=== PATIENT | male | born 1990 | race Caucasian/White ===

== ENCOUNTER → 2021-12-08 10:15 | Outpatient (BNVA) | payer OTHER, SELFPAY | PROVIDERS: PCP Nurse Practitioner Family; Visit Provider Surgery | DX: K43.9 Ventral hernia without obstruction or gangrene (principal) | CPT/HCPCS: 99202 ==

== ENCOUNTER 2022-01-01 05:54 | Day surgery (SDC) | payer OTHER, SELFPAY ==
[2021-12-26 10:27] VITALS: BMI 25.7
[2022-01-01] VITALS (7 sets, daily range): BP systolic 120–130; BP diastolic 70–79; PULSE 67–77; RESP 15–18; TEMP 36.6–36.8; O2SAT 97–100; BMI 25.7
[2022-01-01] MEDS: Lactated Ringers 1,000 ML 100 ML IVCONT (06:29)
--- NOTE | 2022-01-01 07:11 | P.CONAN_ITS ---
[facility] Active Problems Active Problems: All Active Problems (Updated 12/26/21 @ 10:27 by Pascale Reyes RN) Ventral hernia (Acute) Past Medical History Medical History Depression Hx of headache PTSD (post-traumatic stress disorder) Ventral hernia Family History Family History Father Carcinoma of liver and intrahepatic bile ducts Maternal Grandmother Breast cancer Surgical History Surgical History No pertinent past surgical history History of Problems with Anesthesia: No Social History Social History Are you a primary healthcare interpreter to a significant other at home: No Do you presently have visiting nurse or other home services: No Alcohol intake: never Patient Tobacco Use Status: Never used Tobacco Second Hand Smoke Exposure: No Use of substances other than those prescribed or required for medical reasons: No Have you been hit, kicked, punched, or otherwise hurt by someone within the past year? If so, by whom?: No Are you DNR?: No Advance Directives: No Advance Directives Information Provided: No Advance Directives on File: No Recently lost weight without trying: No Eating poorly because of decreased appetite: No Nutrition Risks: No Nutritional Risk Poor oral hygiene: No Meds Allergies Allergy/AdvReac Type Severity Reaction Status Date / Time No Known Allergies Allergy Verified 01/01/22 06:13 Active Medications: Current Medications Lactated Ringer's (Lr) 1,000 mls @ 100 mls/hr IVCONT .Q10H NOÉ Last Admin: 01/01/22 06:29 Dose: 100 mls/hr Documented by: Home Medications Medication Instructions Recorded Confirmed Last Taken Type fluoxetine 10 mg capsule (Prozac) 10 mg PO DAILY 12/08/21 01/01/22 01/01/22 History 10 mg lisdexamfetamine 40 mg capsule 40 mg PO DAILY 12/08/21 12/25/21 Unknown History prazosin 2 mg capsule 2 mg PO BEDTIME 12/08/21 12/25/21 Unknown History prazosin 5 mg capsule 5 mg PO BEDTIME 12/08/21 12/25/21 Unknown History risperidone 1 mg tablet 1 mg PO DAILY tab 12/08/21 12/25/21 Unknown History Exam Exam Date and Time: January 01, 2022 0711 Height,Weight and Vital Signs: Height 6 ft Weight 86.183 kg Last Vital Signs Temp 98.1 F 01/01/22 06:13 Pulse 68 01/01/22 06:13 Resp 15 01/01/22 06:13 BP 120/70 01/01/22 06:13 Pulse Ox 97 01/01/22 06:13 Airway Mallampati Class: III TM Dist: >3cm Neck ROM: Full Loose/Missing/Broken Teeth: No Heart: RRR Lungs: CTA Assessment and Plan Assessment Anesthesia Assessment: Anesthesia Plan Discussed and Chart Reviewed Final Anesthetic Review History of Problems with Anesthesia: No NPO: Yes ASA Class: II Final Preanesthetic Review: Meds/Allgs Chart Reviewed, Consent Obtained/Reviewed and Anes Risks/Benef Reviewed Patient Risk: Low Procedure Risk: Low Anesthetic Plan Anesthetic Plan: GA Disposition: Standard PACU
--- NOTE | 2022-01-01 08:24 | P.OP_ITS ---
Operative Note Operative Note Date of Service: 01/01/22 Narrative: Preoperative diagnosis: Ventral hernia Postoperative diagnosis: Same Procedure: Repair of ventral hernia with mesh Surgeon: Chandrakant Hughes MD [employer] Machine Operator: Savannah Kamara PA-C Anesthesia: General LMA Indications for procedure: 31-year-old male patient presenting with a palpable mass in periumbilical region which increases in size with lifting and straining. Patient reports pain when the hernia is protruding. He is able to reduce the hernia with light pressure. Operative findings: Patient found to have a small ventral hernia just above the umbilicus measuring approximately 1.5 cm in diameter. Specimen: None Estimated blood loss: 5 mL Complications: None Procedure details: Patient was brought to the OR and placed in a supine position. After administering general anesthesia the patient's abdomen was prepped with ChloraPrep and draped in a sterile fashion. A surgical time-out was called and the consent confirmed. Patient received preoperative antibiotics and Venodyne boots were in place. Local anesthesia consisting of 0.5% Sensorcaine was infiltrated in the midline just above the umbilicus. Incision was then made over the hernia and carried down through subcutaneous tissue. The hernia sac was identified. The sac was dissected down to the fascial defect. The umbilical skin was then lifted off the fascia using electrocautery. The hernia sac was then dissected circu mferentially and the contents reduced. No bowel was noted within the hernia. A preperitoneal space was then created using electrocautery. A small Ventralex mesh measuring 4.6 cm in diameter was then obtained. This was placed in the preperitoneal space and secured in 4 quadrants using a 1 Tycron suture. Fascia was then closed over the mesh using [id number] 1 Tycron sutures. Wounds were then irrigated with saline solution and suctioned dry. Umbilical skin was then reattached to the fascia using a 3-0 Polysorb suture. Dermis was closed using interrupted 3-0 Polysorb sutures. Skin was then closed using a running subcuticular 4-0 Polysorb suture. Sterile dressings consisting of Steri-Strips, 2 x 2 gauze, and Tegaderm were then applied. The patient tolerated the procedure well. He was transferred to PACU in stable condition.
--- NOTE | 2022-01-01 08:28 | MHC.SHP ---
Pre-Procedural Eval Section A Date of Service: 01/01/22 The patient is an INPATIENT: No Changes since office visit: Yes Patient answered all questions; No Cold of Flu in the past 2 weeks, No New Medical Problems and No Changes in Medication The History & Physical has been completed within 30 days and I have reviewed it.: Yes Section B Chief Complaint: Ventral Hernia Allergies: Allergies Allergy/AdvReac Type Severity Reaction Status Date / Time No Known Allergies Allergy Verified 01/01/22 06:13 Plan Diagnosis/Plan: Unchanged I have reviewed the history and physical and performed a pertinent physical examination on my patient. No changes have occurred unless specified.
[2022-01-01] MEDS: Acetaminophen 325 MG TABLET 650 MG PO (08:52)
[2022-01-01] MEDS: oxyCODONE HCl Immed Release 5 MG TABLET PO (08:53)
[2022-01-01] MEDS: Ketorolac Tromethamine 15 MG/ML VIAL IVPUSH (08:58)
== END 2022-01-01 10:10 | disposition home or self-care (01) ==
PROVIDERS: PCP Nurse Practitioner Family; Visit Provider Surgery
PROC: (CPT 49560; principal; 2022-01-01 07:30)
DX: K43.9 Ventral hernia without obstruction or gangrene (principal); Z87.19 Personal history of other diseases of the digestive system; Z79.899 Other long term (current) drug therapy
CPT/HCPCS: 49560; 49568; C1781; J0690; J1100; J1885; J2250; J2405; J3010

== ENCOUNTER → 2022-01-09 10:36 | Outpatient (BNVA) | payer OTHER, SELFPAY | PROVIDERS: PCP Nurse Practitioner Family; Visit Provider Surgery | DX: Z48.815 Encounter for surgical aftercare following surgery on the digestive system (principal); Z87.19 Personal history of other diseases of the digestive system; Z98.890 Other specified postprocedural states | CPT/HCPCS: 99212 ==

== ENCOUNTER → 2022-02-08 10:21 | Outpatient (BNVA) | payer OTHER, SELFPAY | PROVIDERS: PCP Nurse Practitioner Family; Visit Provider Surgery | DX: Z48.815 Encounter for surgical aftercare following surgery on the digestive system (principal); Z87.19 Personal history of other diseases of the digestive system; Z98.890 Other specified postprocedural states | CPT/HCPCS: 99212 ==

== ENCOUNTER → 2022-04-03 13:49 | Outpatient (BNVA) | payer OTHER, SELFPAY | PROVIDERS: PCP Nurse Practitioner Family; Visit Provider Surgery | DX: Z13.89 Encounter for screening for other disorder (principal) ==

== ENCOUNTER 2023-08-02 11:24 | Emergency (ER) | payer OTHER, SELFPAY ==
[2023-08-02 11:28] VITALS: BP 141/91; PULSE 73; RESP 16; TEMP 36.6; O2SAT 99; BMI 25.1
--- NOTE | 2023-08-02 11:29 | ED.GENADULT ---
HPI - General Adult General Chief complaint: General Medical Stated complaint: feels like passing out drinking lots of water Time Seen by Provider: 08/02/23 14:07 Source: patient, family and old records reviewed Mode of arrival: ambulatory Limitations: no limitations History of Present Illness HPI narrative: 33 yo male with PMH of PTSD, depression, s/p ventral hernia repair took himself off of his risperdal 1mg about 2 weeks ago as he did not like the side effects. He now feels since Saturday just off that when he stands he feels like he is going to pass out and he is urinating a lot. He had R labrum surgery 5 weeks ago. No fevers, n/v/d. He just doesn't feel great. He did not like the side effects of the medication so he stopped it. MD complaint: fatigue Onset (ago): day(s) (5) Radiation: non-radiation Severity: moderate Quality: aching Relieving factors: none Exacerbating factors: other (worse with standing up) Associated symptoms: malaise and weakness Treatments prior to arrival: none Related Data Home Medications Medication Instructions Recorded Confirmed fluoxetine 10 mg capsule (Prozac) 10 mg PO DAILY 12/08/21 02/08/22 lisdexamfetamine 40 mg capsule 40 mg PO DAILY 12/08/21 12/25/21 prazosin 2 mg capsule 2 mg PO BEDTIME 12/08/21 12/25/21 prazosin 5 mg capsule 5 mg PO BEDTIME 12/08/21 12/25/21 risperidone 1 mg tablet 1 mg PO DAILY 12/08/21 12/25/21 Previous Rx's Medication Instructions Recorded oxycodone-acetaminophen 5 mg-325 1 tab PO Q6H PRN pain (scale score 01/01/22 mg tablet (Endocet) 7-10) #15 tabs Allergies Allergy/AdvReac Type Severity Reaction Status Date / Time No Known Allergies Allergy Verified 04/03/22 13:59 Review of Systems Review of Systems: Constitutional : No Fever, No Chills, No Fatigue, pos malaise Cardiovascular : No Chest Pain, No SOB, No Dyspnea on Exertion Respiratory : No Cough, No Sputum Gastrointestinal : No Nausea, No Vomiting, No Diarrhea, No abdominal Pain Genitourinary : No Dysuria, No Urinary Frequency, No Hematuria, Musculoskeletal : No joint pain, No Myalgias, No Joint Swelling Skin : No Skin Lesions, No rash Neuro : No Weakness, No Numbness, pos Dizziness, no Headache Psych : No Anxiety/Panic, No Depression Heme/Lymph: No Bruising, No Bleeding,No Lymphadenopathy All other systems reviewed and are negative [facility] Past Medical History Attestation statement: The following information was validated with the patient. Source: old records reviewed Medical History (Updated 08/02/23 @ 15:17 by Eulalia Ayala DO) Weakness Hx of headache Depression PTSD (post-traumatic stress disorder) Ventral hernia (01/01/22) Surgical History History of ventral hernia repair (01/01/22) No pertinent past surgical history Family History Family History Father Carcinoma of liver and intrahepatic bile ducts Maternal Grandmother Breast cancer Social History Social History Are you a primary critical care unit manager to a significant other at home: No Do you presently have visiting nurse or other home services: No Alcohol intake: never Patient Tobacco Use Status: Never used Tobacco Smoked in Last 30 Days: No Second Hand Smoke Exposure: No Use of substances other than those prescribed or required for medical reasons: No Advance Directives: No Advance Directives Information Provided: Yes Physical Exam ED Vital Signs: Vital Signs - 24 hr 08/02/23 11:28 08/02/23 14:35 08/02/23 14:44 Temperature 98 F 98.2 F Pulse Rate 73 63 57 Respiratory Rate 16 16 Blood Pressure 141/91 H 124/77 126/79 Pulse Oximetry 99 98 Oxygen Delivery Method Room Air Room Air 08/02/23 14:45 08/02/23 14:46 Temperature Pulse Rate 62 69 Respiratory Rate Blood Pressure 139/86 123/84 Pulse Oximetry Oxygen Delivery Method BMI result Body Mass Index 25.1 Appearance: Alert. Oriented X3. No acute distress. Eyes: Pupils equal, round and reactive to light. ENT: Pharynx normal. Neck: Normal inspection. Neck supple. CVS: Normal heart rate and rhythm. Pulses normal. Respiratory: No respiratory distress. Breath sounds normal. Abdomen: Soft and non-tender. Skin: Skin warm and dry. Normal skin color. Normal skin turgor. Extremities: No lower extremity edema. R arm in splint bruising to R upper arm - distal NV intact Neuro: Oriented X 3. No motor deficit. No sensory deficit. Course Course Course Narrative: This is an RME: Additional HPI, ROS, PE not included below will be deferred to primary provider. Patient is a 33-year-old male who presents to the emergency department for evaluation of multiple symptoms. He states that he was experiencing the symptoms over the past 2 years which he attributed to use of Risperidone, spoke with his doctor who advised him that he needed to drink water. He endorses that he stopped risperidone 2 weeks ago, noticed complete improvement for about 1 week, but for the past 4 days symptoms have returned and are worse. Constant lightheadedness, feeling a though he is going to pass out, has some improvement after sitting down for a while. Endorses SOB on exertion, urinary frequency with large amounts voided, headache. Denies fevers, chills, chest pain, numbness or tingling of extremities. Plan: labs, EKG, U/A, viral testing Reevaluation(s) Reevaluation #1: negative workup at this time. UA and labs, ortho VS negative stable for DC Reevaluation #2: they have a blood sugar machine at home Medical Decision Making Medical Decision Making [facility] Narrative: 33 yo male with PMH of PTSD, depression, s/p ventral hernia repair took himself off of his risperdal 1mg about 2 weeks ago here with feelings of getting clammy dizzy when standing like his sugar is low and he is urinating a lot. He was worried his blood sugar was off. He is eating. He has no fevers, chest pain, shortness of breath. His symptoms are worse with standing. Could be orthostasis, anemia, dehydration. Differential Diagnosis Differential Diagnoses: The differential diagnosis associated with the presentation includes anemia, dehydration, orthostatics, no CP - stable VS doubt VTE, 5 weeks out of surgery 1+ month out no headaches no focal deficits doubt intracranial mass Admission/Observation Consideration of admission/observation: Escalation of care including admission/observation considered EKG and labs, ortho VS negative Lab Data [facility] Lab Attestation statement: I reviewed the patient's lab results. 08/02/23 11:44 08/02/23 11:44 Labs: Lab Results 08/02/23 08/02/23 Range/Units 11:44 14:47 WBC 4.3 L (4.8-10.8) X10*3/uL RBC 4.97 (4.60-5.80) X10*6/uL Hgb 14.8 (14.0-18.0) g/dl Hct 43.6 (42.0-52.0) % MCV 87.7 (80.0-98.0) fL MCH 29.8 (27.0-33.0) pg MCHC 33.9 (31.0-36.0) g/dl RDW 11.1 (11.0-16.0) % Plt Count 157 L (160-400) X10*3/uL MPV 9.1 L (9.4-12.4) fL Immature Gran % (Auto) 0.2 (0.0-0.4) % Neut % (Auto) 66.3 (45-73) % Lymph % (Auto) 24.0 (20-40) % [place] % (Auto) 8.1 (2-11) % Eos % (Auto) 0.9 (0-4) % Baso % (Auto) 0.5 (0-2) % Lymph # (Auto) 1.0 L (1.2-4.9) X10*3/uL [place] # (Auto) 0.4 (0.1-1.2) X10*3/uL Eos # (Auto) 0.0 (0.0-0.4) X10*3/uL Baso # (Auto) 0.0 (0.0-0.2) X10*3/uL Abs Immat Gran (auto) 0.01 (0.00-0.03) X10*3/uL Absolute Neuts (auto) 2.9 (2.0-8.3) x10*3/uL Absolute Nucleated RBC 0.000 (0.0-0.012) X10*3/uL Nucleated RBC % (auto) 0.0 (0.0-0.2) /100WBC PT 11.4 (11.1-13.3) SEC INR 0.9 (0.9-1.1) Sodium 141 (135-145) mmol/L Potassium 4.2 (3.3-5.1) mmol/L Chloride 106 (96-108) mmol/L Carbon Dioxide 26 (22-29) mmol/L Anion Gap 13 (12-20) BUN 15 (9-16) mg/dL Creatinine 1.08 (0.5-1.4) mg/dL Estim Creat Clear Calc 106.7 Estimated GFR > 60 Random Glucose 106 (60-115) mg/dL Calcium 9.3 (8.4-10.2) mg/dL Magnesium 2.0 (1.6-2.6) mg/dL Total Bilirubin 0.6 (0.0-1.0) mg/dL AST 17 (5-37) U/L ALT 16 (0-40) U/L Alkaline Phosphatase 66 (39-117) U/L Total Protein 7.3 (6.5-8.0) g/dL Albumin 4.8 (3.5-5.0) g/dL Lipase 53 (8-78) U/L TSH 0.89 (0.32-4.0) uIU/mL Urine Color Yellow Urine Appearance Clear Urine pH 6.5 (5.0-9.0) Ur Specific [place] <= 1.005 (1.005-1.025) Urine Protein Negative (Neg-Trace) mg/dL Urine Glucose (UA) Negative (Negative) mg/dL Urine Ketones Negative (Negative) mg/dL Urine Blood Negative (Negative) Urine Nitrite Negative (Negative) Ur Leukocyte Esterase Negative (Negative) COVID-19 ([place]) Negative (Negative) COVID-19 Clin Com See Note Independent Interpretation I performed an independent interpretation of an: EKG Interpretation: Rate: 61 Rhythm: NSR [place]: normal Normal P waves. Normal MY. Normal QRS complex. ST T wave : normal no DALE qTC: normal prior studies: no acute ischemia The study has been interpreted contemporaneously by me. . Independent Historian Clinical information obtained from an independent historian. History obtained from or confirmed by: Other (family) External Record Review External record reviewed: Inpatient record Prescription Management I considered prescription management with: Other (glucose monitor) Discharge Plan Discharge Clinical Impression: Weakness, Acute viral syndrome Patient Disposition: Home, Self-Care Instructions: Viral Syndrome (ED), Weakness (ED) Additional Instructions: stay hydrated mix half gatorade and water drinks do not drink more than 64 ounces a day so you are not over hydrated. return for chest pain, shortness of breath, fainting, headaches, numbness or any other concerns. blood sugar normal, COVID negative. your CBC looks viral in nature at this time please check your blood sugar during episodes if below 60 eat a snack and call 911, drink juice and eat a protein Prescriptions: No Action oxycodone-acetaminophen [Endocet] 5-325 mg tablet 1 tab PO Q6H PRN (Reason: pain (scale score 7-10)) Qty: 15 0RF risperidone 1 mg tablet 1 mg PO DAILY prazosin 5 mg capsule 5 mg PO BEDTIME prazosin 2 mg capsule 2 mg PO BEDTIME lisdexamfetamine 40 mg capsule 40 mg PO DAILY fluoxetine [Prozac] 10 mg capsule 10 mg PO DAILY
[2023-08-02 11:54] LABS: MANUAL DIFF FLAG NO
[2023-08-02 11:57] LABS: Basophils Percent Auto 0.5 % (0-2); Eosinophils Percent Auto 0.9 % (0-4); Hematocrit 43.6 % (42.0-52.0); Hemoglobin 14.8 g/dl (14.0-18.0); Imm Gran Abs Auto 0.01 X10*3/uL (0.00-0.03); Imm Gran Pct Auto 0.2 % (0.0-0.4); Mean Corpuscular HGB Conc 33.9 g/dl (31.0-36.0); Mean Corpuscular Hemoglobin 29.8 pg (27.0-33.0); Mean Corpuscular Volume 87.7 fL (80.0-98.0); Mean Platelet Volume 9.1 fL (9.4-12.4); Monocytes Absolute Auto 0.4 X10*3/uL (0.1-1.2); Monocytes Percent Auto 8.1 % (2-11); Neutrophils Absolute Auto 2.9 x10*3/uL (2.0-8.3); Neutrophils Percent Auto 66.3 % (45-73); Platelet Count 157 X10*3/uL (160-400); Red Blood Count 4.97 X10*6/uL (4.60-5.80); Red Cell Distribution Width 11.1 % (11.0-16.0); White Blood Count 4.3 X10*3/uL (4.8-10.8)
[2023-08-02 12:08] LABS: INTERNATIONAL NORM RATIO 0.9 (0.9-1.1); Prothrombin Time 11.4 SEC (11.1-13.3)
[2023-08-02 12:15] LABS: COVID-19 Test Negative (Negative); IDNOW Serial# 9DB6401D
[2023-08-02 12:26] LABS: Alanine Aminotransferase 16 U/L (0-40); Albumin Level 4.8 g/dL (3.5-5.0); Alkaline Phosphatase 66 U/L (39-117); Anion Gap 13 (12-20); Aspartate Amino Transferase 17 U/L (5-37); Bilirubin Total 0.6 mg/dL (0.0-1.0); Blood Urea Nitrogen 15 mg/dL (9-16); Calcium 9.3 mg/dL (8.4-10.2); Carbon Dioxide 26 mmol/L (22-29); Chloride 106 mmol/L (96-108); Creatinine Clr Calc Pharmacy 106.7; Estimated Glomerular Filt Rate > 60; Glucose Random 106 mg/dL (60-115); Lipase 53 U/L (8-78); Potassium 4.2 mmol/L (3.3-5.1); Sodium 141 mmol/L (135-145); Total Protein 7.3 g/dL (6.5-8.0)
[2023-08-02 12:37] LABS: TSH reflex Free T4 0.89 uIU/mL (0.32-4.0)
[2023-08-02 14:35] VITALS: BP 124/77; PULSE 63; RESP 16; TEMP 36.8; O2SAT 98
[2023-08-02 14:44] VITALS: BP 126/79; PULSE 57
[2023-08-02 14:45] VITALS: BP 139/86; PULSE 62
[2023-08-02 14:46] VITALS: BP 123/84; PULSE 69
[2023-08-02 14:54] LABS: Appearance Urine Clear; Color Urine Yellow; Glucose Urine UA Negative (Negative); Leukocyte Esterase Urine Negative (Negative); Nitrite Urine Negative (Negative); PH 6.5 (5.0-9.0); Specific Gravity - Urine <= 1.005 (1.005-1.025); Urine Blood Negative (Negative); Urine Ketones Negative (Negative); Urine Protein Negative (Neg-Trace)
== END 2023-08-02 15:40 | disposition home or self-care (01) ==
PROVIDERS: Nurse Practitioner Family; Emergency Provider Emergency Medicine
DX: B34.9 Viral infection, unspecified (principal); R53.1 Weakness; Z11.52 Encounter for screening for COVID-19; Z79.899 Other long term (current) drug therapy
CPT/HCPCS: 80053; 81003; 83690; 83735; 84443; 85025; 85610; 87635; 93005; 99284

== ENCOUNTER → 2025-05-11 23:59 | Outpatient (BNV) | payer OTHER, SELFPAY | PROVIDERS: Visit Provider Psychiatry & Neurology Neurology | DX: R29.2 Abnormal reflex (principal) | CPT/HCPCS: 95886; 95911 ==

== ENCOUNTER → 2025-05-25 23:59 | Outpatient (BNV) | payer OTHER, SELFPAY | PROVIDERS: Visit Provider Psychiatry & Neurology Neurology | DX: R25.8 Other abnormal involuntary movements (principal) | CPT/HCPCS: 95886; 95912 ==